=== PATIENT | female | born 1975 | race African-American/Black ===

== ENCOUNTER 2017-10-01 10:20 | Emergency (ER) | payer MEDICAID ==
[~2017-10-01] VITALS: Ht 160 cm; Wt 83.0 kg
[~2017-10-01 10:20] MED LIST: AMOXICILLIN500 MG ORAL; BENAZEPRIL HCL20 MG ORAL; BENAZEPRIL-HCT1 EACH ORAL; IBUPROFEN600 MG ORAL; LORAZEPAM0.5 MG ORAL; NORCO 5-325 TA1 EACH ORAL; POLYTRIM OP SOL10 ML BOTH EYES
[2017-10-01 10:31] VITALS: BP 127/74
[2017-10-01] MEDS ORDERED: OCUFLOX5 ML LEFT EYE (10:42)
[2017-10-01 10:45] VITALS: BP 127/74
--- NOTE | 2017-10-01 10:55 | Emergency Room Report ---
History of Present Illness General Chief Complaint: Eye Problems Source: Patient Present Illness HPI 42-year-old female presents ED complaining of left eye irritation and discharge 1 day. Denies any photophobia. Denies any pain. Notes redness and yellowish discharge around her left eye. Denies sick contacts or recent travel. No other aggravating relieving factors. Denies any other associated symptoms Allergies: Coded Allergies: No Known Allergies (Unverified , 09/11/12) Patient History Past Medical History: HTN Past Surgical History: none Pertinent Family History: none Social History: Denies: smoking, alcohol use, drug use Last Menstrual Period: 10/01/17 Now: No Immunizations: UTD Reviewed Nursing Documentation: PMH: Agreed; PSxH: Agreed Nursing Documentation-PMH Past Medical History: No History, Except For Hx Hypertension: Yes Review of Systems All Other Systems: negative except mentioned in HPI Physical Exam Vital Signs Date Time Temp Pulse Resp B/P (MAP) Pulse Ox O2 Delivery O2 Flow Rate FiO2 10/01/17 10:25 97.6 67 16 127/74 97 Room Air 97.5 Sp02 EP Interpretation: reviewed, normal General Appearance: no apparent distress, alert, GCS 15, non-toxic Head: normocephalic Eyes: left eye Scleral Injection, left eye other - discharge around L eye; bilateral eye normal inspection, bilateral eye PERRL, bilateral eye EOMI, bilateral eye visual acuity ENT: hearing grossly normal, normal pharynx, no angioedema, normal voice Neck: normal inspection Respiratory: normal inspection Cardiovascular #1: normal inspection Gastrointestinal: normal inspection Rectal: deferred Genitourinary: no CVA tenderness Musculoskeletal: normal inspection Neurologic: alert, oriented x3, responsive, motor strength/tone normal, sensory intact, speech normal Psychiatric: normal inspection Skin: normal inspection Lymphatic: normal inspection Medical Decision Making Diagnostic Impression: Primary Impression: Conjunctivitis Qualified Codes: H10.9 - Unspecified conjunctivitis ER Course Hospital Course 42-year-old F presents to ED with L eye redness and discharge Differential diagnoses include: conjunctivitis, traumatic iritis, foreign body, corneal abrasion Clinical course Patient placed on stretcher. After initial history, physical exam revealed a middle-aged female no acute distress. There is injected conjunctiva L eye. some crusting/discharge noted. Pupils equally reactive to light bilaterally. No evidence of foreign body. Clinical findings consistent with conjunctivitis. Diagnosis - conjunctivitis Stable and discharged to home with prescription for Ocuflox. Followup with PMD/ Optho. Return to ED if symptoms recur or worsen Last Vital Signs Date Time Temp Pulse Resp B/P (MAP) Pulse Ox O2 Delivery O2 Flow Rate FiO2 10/01/17 10:45 97.5 67 16 127/74 97 Room Air 97.5 Status: improved Disposition: HOME, SELF-CARE Condition: Stable Scripts Ofloxacin (OCUFLOX) 5 Ml Drops 1 DROP LEFT EYE QID for 7 Days, ML Prov: Simón Keenan MD 10/01/17 Patient Instructions: Bacterial Conjunctivitis Simón Keenan MD Oct 01, 2017 10:55
== END 2017-10-01 10:50 | disposition home or self-care (01) ==
LOC: EMR 10:50
DX: H10.9 Unspecified conjunctivitis (principal); I10 Essential (primary) hypertension
CPT/HCPCS: 99283

== ENCOUNTER 2018-03-24 07:16 | Emergency (ER) | payer MEDICAID ==
[~2018-03-24] VITALS: Ht 160 cm; Wt 87.1 kg
[~2018-03-24 07:16] MED LIST changes: +OCUFLOX5 ML LEFT EYE
[2018-03-24 07:26] VITALS: BP 126/83
[2018-03-24] MEDS ORDERED: AUGMENTIN 875-1 EAC1 ORAL (07:32)
[2018-03-24 07:35] VITALS: BP 127/82
--- NOTE | 2018-03-24 08:24 | Emergency Room Report ---
History of Present Illness General Chief Complaint: Toothache Source: Patient Present Illness HPI 42-year-old female presents ED complaining of tooth pain. States that she's had a cracked tooth in her right upper mouth for the last several months. States that she has avoided going to the dentist. States there is now pain and swelling in that area. Started a few days ago. It is throbbing, 5 out of 10, nonradiating. States that she is scheduled to see a dentist next week. Denies fevers or chills. Denies neck stiffness. Denies any discharge. No other aggravating relieving factors. Denies any other associated symptoms Allergies: Coded Allergies: No Known Allergies (Unverified , 09/11/12) Patient History Past Medical History: HTN Past Surgical History: none Pertinent Family History: none Social History: Denies: smoking, alcohol use, drug use Now: No Immunizations: UTD Reviewed Nursing Documentation: PMH: Agreed; PSxH: Agreed Nursing Documentation-PMH Past Medical History: No History, Except For Hx Hypertension: Yes Review of Systems All Other Systems: negative except mentioned in HPI Physical Exam Vital Signs Date Time Temp Pulse Resp B/P (MAP) Pulse Ox O2 Delivery O2 Flow Rate FiO2 03/24/18 07:19 97.9 70 17 129/85 99 Room Air Sp02 EP Interpretation: reviewed, normal General Appearance: no apparent distress, alert, GCS 15, non-toxic Head: normocephalic Eyes: bilateral eye normal inspection, bilateral eye PERRL ENT: hearing grossly normal, normal pharynx, no angioedema, normal voice, other - multiple dental caries. surrounding erythema/induration to cracked tooth. no fluctuance or discharge Neck: full range of motion, no meningismus, supple/symm/no masses Respiratory: normal inspection Cardiovascular #1: normal inspection Gastrointestinal: normal inspection Rectal: deferred Genitourinary: no CVA tenderness Musculoskeletal: normal inspection Neurologic: alert, oriented x3, responsive, motor strength/tone normal, sensory intact, speech normal Psychiatric: judgement/insight normal, memory normal, mood/affect normal, no suicidal/homicidal ideation Skin: normal inspection Lymphatic: normal inspection Medical Decision Making Diagnostic Impression: Primary Impression: Toothache ER Course 42-year-old female presents ED complaining of tooth pain. Cracked tooth, dental abscess, cavity Patient placed on stretcher. After initial history, physical exam reveals a young female in no distress. there are mutliple cracked teeth in R upper jaw. there is some surrounding swelling/erythema. no fluctuance or discharge. no nuchal rigidity Discussed findings with patient. We'll prescribe antibiotics. Recommend patient follow up with dentist as soon as possible. I'll provide dental referrals as well Diagnosis- toothache Stable and discharged to home prescription for augmentin. Instructed to see dentist as a walk-in this week. Return to ED if symptoms recur or worse Last Vital Signs Date Time Temp Pulse Resp B/P (MAP) Pulse Ox O2 Delivery O2 Flow Rate FiO2 03/24/18 07:35 98.1 68 17 127/82 99 Room Air Status: improved Disposition: HOME, SELF-CARE Condition: Stable Scripts Amoxicillin/Potassium Clav 875-125* (AUGMENTIN 875-125 TABLET*) 1 Each Tablet 1 TAB ORAL TWICE A DAY, #14 TAB Prov: Simón Keenan MD 03/24/18 Referrals: NON PHYSICIAN (PCP) [facility] INFO: New Patient Screening: Tue- 8am-1pm Tue- 9am -5pm and Tue 2pm-5pm [facility](age 2-12) - Orthodontic Clinic - Hours: Tue,Tue,, 8:15am and 1pm (new patient screening), Tues. 1pm. Emergency clinic Tuesday - Tuesday 8:30am and 1pm, Tu. 1pm. *Call to check if clinic is open; No appointment necessary for the first visit ( new patient screening), Arrive 15-30 minutes early as it is first come, first serve. Patient Instructions: Dental Pain Simón Keenan MD Mar 24, 2018 08:24
== END 2018-03-24 07:34 | disposition home or self-care (01) ==
LOC: EMR 07:20
DX: K08.89 Other specified disorders of teeth and supporting structures (principal); I10 Essential (primary) hypertension
CPT/HCPCS: 99282

== ENCOUNTER 2019-06-06 10:03 | Emergency (ER) | payer MEDICAID ==
[~2019-06-06] VITALS: Ht 160 cm; Wt 85.3 kg
[~2019-06-06 10:03] MED LIST changes: +AUGMENTIN 875-1 EAC1 ORAL
[2019-06-06 10:14] VITALS: BP 157/94
--- NOTE | 2019-06-06 10:20 | NUR ---
ED Nurse Note: patient walked into ED from home c/o left eye redness and swelling, discomfort since yesterday morning. patient is alert awake x 4 ambulatory, breathing unlabored and even, speaking in full sentences.
[2019-06-06 10:50] VITALS: BP 157/94
[2019-06-06] MEDS ORDERED: ERYTHROMYCIN3.5 GM LEFT EYE (10:51)
--- NOTE | 2019-06-06 10:51 | Emergency Room Report ---
History of Present Illness General Chief Complaint: Eye Problems Source: Patient Present Illness HPI 44-year-old female presents with left eye crusting x1 day no aggravating relieving factors severity is mild, constant patient presents for evaluation no change in vision no pain Allergies: Coded Allergies: No Known Allergies (Unverified , 09/11/12) Patient History Past Medical History: see triage record Last Menstrual Period: last week Reviewed Nursing Documentation: PMH: Agreed; PSxH: Agreed Nursing Documentation-PMH Past Medical History: No History, Except For Hx Hypertension: Yes Review of Systems All Other Systems: negative except mentioned in HPI Physical Exam Vital Signs Date Time Temp Pulse Resp B/P (MAP) Pulse Ox O2 Delivery O2 Flow Rate FiO2 06/06/19 10:14 97.9 83 20 157/94 99 Room Air General Appearance: well appearing, no apparent distress Head: normocephalic, atraumatic Eyes: left eye other - Crusting and injection of the left eye,; bilateral eye PERRL, bilateral eye EOMI ENT: hearing grossly normal, normal voice Neck: full range of motion, supple Respiratory: no respiratory distress, speaking full sentences Neurologic: alert, normal gait Psychiatric: mood/affect normal Skin: no rash Medical Decision Making Diagnostic Impression: Primary Impression: Conjunctivitis Qualified Codes: H10.32 - Unspecified acute conjunctivitis, left eye ER Course 44-year-old female presents with congested left eye, visual acuity per nurse's notes patient with no pain differential diagnosis includes acute angle-closure glaucoma patient's pupils are equal and reactive less likely disposition home with return precautions erythromycin provided Last Vital Signs Date Time Temp Pulse Resp B/P (MAP) Pulse Ox O2 Delivery O2 Flow Rate FiO2 06/06/19 10:14 97.9 83 20 157/94 (115) 99 Room Air Disposition: HOME, SELF-CARE Condition: Stable Scripts Erythromycin Base (ERYTHROMYCIN*) 3.5 Gm Oint...g. 1 APPLIC LEFT EYE QID, #3.5 GM 0 Refills Prov: Anton Michele MD 06/06/19 Referrals: NON PHYSICIAN (PCP) [facility] Patient Instructions: Bacterial Conjunctivitis, [id number] Additional Instructions: The patient was provided with discharge instructions, notified to follow-up with a primary care doctor and or specialist in the next 24-48 hours, and to return to the ED if they have worsening of their symptoms. Please note that this report is being documented using [employer]ium[employer] technology. This can lead to erroneous entry secondary to incorrect interpretation by the dictating instrument. Anton Michele MD Jun 06, 2019 10:51
--- NOTE | 2019-06-06 11:00 | NUR ---
ER DISCHARGE NOTE: Patient is cleared to be discharged per ERMD DR MCCORMICK, pt is aox4, on room air, with stable vital signs. pt was given dc and prescription instructions, pt was able to verbalize understanding, pt id band removed without complications. pt is able to ambulate with steady gait. pt took all belongings.
== END 2019-06-06 11:00 | disposition home or self-care (01) ==
LOC: EMR 10:30
DX: H10.32 Unspecified acute conjunctivitis, left eye (principal); I10 Essential (primary) hypertension
CPT/HCPCS: 99282

== ENCOUNTER 2019-12-25 15:58 | Emergency (ER) | payer MEDICAID ==
[~2019-12-25] VITALS: Ht 160 cm; Wt 83.5 kg
[~2019-12-25 15:58] MED LIST changes: +ERYTHROMYCIN3.5 GM LEFT EYE
--- NOTE | 2019-12-25 16:20 | NUR ---
ED Nurse Note: pt presents to ED c/o abscess on her tongue. pt reports that she got her tongue pierced in August but that they "went too far" so she had a small flap of tissue hanging off the tip of her tongue, it now appears to be purulent. pt states that it drained a couple days ago, denies pain, describes discomfort to tip of tongue. pt denies any SOB, fevers or chills at this time
[2019-12-25 16:22] VITALS: BP 139/96
[2019-12-25 17:36] VITALS: BP 127/85
--- NOTE | 2019-12-25 17:37 | Emergency Room Report ---
History of Present Illness General Chief Complaint: General Complaint Source: Patient Present Illness HPI Patient states that she had a tongue ring placed in August of this year. She states that when the tongue was pierced there was an injury to the middle part of the lower part of the tongue. She states there was a flap of skin there until recently it has filled with pus intermittently. She states that she will squeeze it and it will drain and then the flap. She states that there is some pus today in the same flap of skin. She denies any tongue pain or actual tongue swelling. She denies fever or chills. She denies difficulty swallowing. She denies neck pain. She has no other complaints. Allergies: Coded Allergies: No Known Allergies (Unverified , 09/11/12) COVID-19 Screening Contact w/high risk pt: No Experienced COVID-19 symptoms?: No COVID-19 Testing performed ACCOUNT ADJUSTER: No Patient History Past Medical History: see triage record, HTN Social History: Denies: smoking, alcohol use, drug use Last Menstrual Period: 12/01/2019 Reviewed Nursing Documentation: PMH: Agreed; PSxH: Agreed Nursing Documentation-PMH Past Medical History: No History, Except For Hx Hypertension: Yes Review of Systems All Other Systems: negative except mentioned in HPI Physical Exam Vital Signs Date Time Temp Pulse Resp B/P (MAP) Pulse Ox O2 Delivery O2 Flow Rate FiO2 12/25/19 16:03 98.1 86 19 139/96 (110) 100 Room Air Sp02 EP Interpretation: reviewed, normal General Appearance: no apparent distress, alert, GCS 15, non-toxic Head: normocephalic, atraumatic ENT: hearing grossly normal, normal pharynx, no angioedema, normal voice, other - inferior aspect of tongue midway: small pustule. During examination, with gentle pressure a small amount of purlent discharge was expressed. Neck: full range of motion, supple/symm/no masses Respiratory: no respiratory distress, no retraction, no accessory muscle use, speaking full sentences Rectal: deferred Musculoskeletal: back normal, normal range of motion, calf tenderness, gait/station normal, non-tender Neurologic: alert, motor strength/tone normal, oriented x3, responsive, speech normal Psychiatric: judgement/insight normal, memory normal, mood/affect normal, no suicidal/homicidal ideation Skin: normal color Medical Decision Making Diagnostic Impression: Primary Impression: Tongue injury Additional Impression: Pustule ER Course This patient has a small pustule on the underside of her tongue. Likely this is secondary to the fact the skin that is residual from the piercing she had a few months ago. The pustule was easily expressed and drained here in the emergency department by myself. The patient was educated that she would need to have this skin removed in order to prevent this from re-occurring. She was also instructed on warm water to her mouth to allow further drainage. She is educated that she could likely have this skin removed by an oral surgeon or an learning designer. There is no evidence of true tongue infection or abscess. There is no evidence of Dewayne angina or any other concerning findings on physical exam. The patient is given return precautions and follow- up instructions. Last Vital Signs Date Time Temp Pulse Resp B/P (MAP) Pulse Ox O2 Delivery O2 Flow Rate FiO2 12/25/19 16:22 86 19 Room Air 12/25/19 16:22 98.1 139/96 100 Status: improved Disposition: HOME, SELF-CARE Condition: Improved Referrals: NON PHYSICIAN (PCP) Stephanie Grier DO Dec 25, 2019 17:37
--- NOTE | 2019-12-25 17:37 | NUR ---
ER DISCHARGE NOTE: Patient is cleared to be discharged per ERMD, pt is aox4, on room air, with stable vital signs. pt was given dc instructions, pt was able to verbalize understanding, pt id band removed. pt is able to ambulate with steady gait. pt took all belongings.
== END 2019-12-25 17:41 | disposition home or self-care (01) ==
LOC: EMR 16:45
DX: S09.93XA Unspecified injury of face, initial encounter (principal); L08.9 Local infection of the skin and subcutaneous tissue, unspecified; I10 Essential (primary) hypertension; X58.XXXA Exposure to other specified factors, initial encounter; Y92.9 Unspecified place or not applicable
CPT/HCPCS: 99282